=== PATIENT | female | born 2000 | race African-American/Black ===

== ENCOUNTER 2019-10-25 02:48 | Emergency (ER) | payer OTHER ==
[2019-10-25 05:00] LABS: ABSOLUTE BASOPHILS # (AUTO) 0.1 10^3/uL (0.0-0.2); ABSOLUTE EOSINOPHILS # (AUTO) 0.3 10^3/uL (0.0-0.6); ABSOLUTE LYMPHOCYTES (AUTO) 1.9 10^3/uL (0.5-4.7); ABSOLUTE MONOCYTES (AUTO) 0.9 10^3/uL (0.1-1.4); ABSOLUTE NEUT (AUTO) 4.2 10^3/uL (1.7-8.2); BASOPHILS % (AUTO) 0.8 % (0-2); EOSINOPHILS % (AUTO) 3.4 % (0-6); HEMATOCRIT 39.3 % (36.0-47.0); HEMOGLOBIN 13.4 g/dL (12.0-15.5); LYMPHOCYTES % (AUTO) 25.4 % (13-45); MEAN CORPUSCULAR HEMOGLOBIN 30.6 pg (27.0-33.4); MEAN CORPUSCULAR HGB CONC 34.3 g/dL (32.0-36.0); MEAN CORPUSCULAR VOLUME 89 fl (80-97); MONOCYTES % (AUTO) 12.9 % (3-13); PLATELET COUNT 254 10^3/uL (150-450); RED CELL DISTRIBUTION WIDTH 12.2 % (11.5-14.0); SEGMENTED NEUTROPHILS % (AUTO) 57.5 % (42-78); TOTAL CELLS COUNTED % (AUTO) 100 %; WHITE BLOOD COUNT 7.3 10^3/uL (4.0-10.5)
[2019-10-25 05:05] LABS: APPEARANCE,URINE SLIGHTLY-CLOUDY; BILIRUBIN,URINE NEGATIVE (NEGATIVE); COLOR,URINE YELLOW; GLUCOSE, URINE NEGATIVE (NEGATIVE); KETONES,URINE NEGATIVE (NEGATIVE); LEUKOCYTE ESTERASE,URINE NEGATIVE (NEGATIVE); NITRITE,URINE NEGATIVE (NEGATIVE); PROTEIN,URINE NEGATIVE (NEGATIVE); URINE SPECIFIC GRAVITY 1.023; UROBILINOGEN,URINE NEGATIVE mg/dL (<2.0)
[2019-10-25 05:06] LABS: ALKALINE PHOSPHATASE 48 U/L (38-126); ANION GAP 8 (5-19); ASPARTATE AMINO TRANSFERASE 28 U/L (14-36); BILIRUBIN,TOTAL 0.4 mg/dL (0.2-1.3); BLOOD UREA NITROGEN 11 mg/dL (7-20); CALCIUM 9.7 mg/dL (8.4-10.2); CARBON DIOXIDE 27 mmol/L (22-30); CHLORIDE 102 mmol/L (98-107); GLUCOSE 100 mg/dL (75-110); POTASSIUM 4.5 mmol/L (3.6-5.0); TOTAL PROTEIN 8.6 g/dL (6.3-8.2)
[2019-10-25] MEDS ORDERED: PROMETHAZINE HCL 25 MG TABLET PO ONE (05:17)
[2019-10-25] MEDS ORDERED: OXYCODONE-ACETAMINOPHEN 5-325 MG TABLET PO ONE (05:17)
[2019-10-25] MEDS ORDERED: IBUPROFEN 600 MG TABLET PO ONE (05:17)
--- NOTE | 2019-10-25 05:21 | ER Document Report ---
ED GI/ - General Chief Complaint: Abdominal Pain Stated Complaint: LOWER ABDOMINAL PAIN Time Seen by Provider: 10/25/19 05:06 Primary Care Provider: [facility] [Provider Group] - Follow up as needed Notes: Patient is a 19-year-old female that comes to the emergency department for chief complaint of sharp left lower abdominal/pelvic pain that woke her up from sleep just prior to arrival. She reports initial nausea and worse pain, she also reports some light vaginal bleeding. She denies vaginal discharge, flank pain, vomiting, fever, dysuria, concerns for STD. She denies history of ovarian cysts. She states her last menstrual cycle was less than a month ago. She denies any daily medications, surgeries, or past medical history. - Related Data Allergies/Adverse Reactions: No Known Allergies Allergy (Unverified 10/25/19 04:31) Past Medical History - General Information source: Patient - Social History Smoking Status: Never Smoker Frequency of alcohol use: Social Drug Abuse: None Lives with: Family Family History: Reviewed & Not Pertinent Surgical Hx: Negative - Immunizations Immunizations up to date: Yes Hx Diphtheria, Pertussis, Tetanus Vaccination: Yes Review of Systems - Review of Systems Constitutional: No symptoms reported EENT: No symptoms reported Cardiovascular: No symptoms reported Respiratory: No symptoms reported Gastrointestinal: See HPI Genitourinary: See HPI Female Genitourinary: See HPI Musculoskeletal: No symptoms reported Skin: No symptoms reported Hematologic/Lymphatic: No symptoms reported Neurological/Psychological: No symptoms reported Physical Exam - Vital signs Vitals: Temp Pulse Resp BP Pulse Ox 98.5 F 63 16 111/68 97 10/25/19 02:57 10/25/19 02:57 10/25/19 02:57 10/25/19 02:57 10/25/19 02:57 - Notes Notes: GENERAL: Alert, interacts well. No acute distress. HEAD: Normocephalic, atraumatic. EYES: Pupils equal, round, and reactive to light. Extraocular movements intact. ENT: Oral mucosa moist, tongue midline. Oropharynx unremarkable. Airway patent. LUNGS: Clear to auscultation bilaterally, no wheezes, rales, or rhonchi. No respiratory distress. Non-tender chest wall. HEART: Regular rate and rhythm. No murmur ABDOMEN: There is some tenderness in the mid to left lower abdomen/pelvic area. There is no guarding. Remaining abdomen is soft and benign. No rigidity or distention. Bowel sounds present. EXTREMITIES: Moves all 4 extremities spontaneously. No edema, normal radial and dorsalis pedis pulses bilaterally. No cyanosis. BACK: no cervical, thoracic, lumbar midline tenderness. No saddle anesthesia, normal distal neurovascular exam. Moves all extremities in full range of motion. NEUROLOGICAL: Alert and oriented x3. Normal speech. Cranial nerves II through XII grossly intact. Strength 5/5 in all extremities. PSYCH: Normal affect, normal mood. SKIN: Warm, dry, normal turgor. No rashes or lesions noted. Course - Re-evaluation Re-evalutation: CBC, chemistry unremarkable, urinalysis unremarkable with only a little bit of blood which I suspect is secondary to vaginal bleeding. Patient is barely bleeding at all now, she is quite comfortable now. Patient states initially she was in a lot of pain, had nausea, however she has significantly improved now. Transvaginal ultrasound with no concerning findings, trace free fluid. On reevaluation patient is still not been medicated but her pain and symptoms have almost completely resolved. Discussed pelvic exam but this was declined by patient. Overall her presentation does suggest ruptured ovarian cyst with no concerning findings otherwise. She might just have a menstrual cycle pain, I did discuss irregular menstrual cycles, routine [facility] follow-up, and return precautions. Patient states appreciation and agreement. Smiling, well- appearing, no complaints at time of discharge. - Vital Signs Vital signs: Temp Pulse Resp BP Pulse Ox 98.2 F 63 16 136/67 H 96 10/25/19 06:35 10/25/19 06:35 10/25/19 06:35 10/25/19 06:35 10/25/19 06:35 - Laboratory Result Diagrams: 10/25/19 04:41 10/25/19 04:41 Laboratory results interpreted by me: 10/25/19 10/25/19 04:41 04:41 Sodium 136.8 L Total Protein 8.6 H Urine Blood LARGE H Discharge - Discharge Clinical Impression: Lower abdominal pain Condition: Stable Disposition: HOME, SELF-CARE Additional Instructions: Your work-up does not show any concerning findings. Your overall evaluation is reassuring. I suspect your pain was from an ovarian cyst that popped, however this is not definite. I suspect your symptoms will simply resolve with time. Follow-up with [facility] routinely. Return if you worsen including returned or severe/worsening pain, vomiting, fever, or any other concerning symptoms. Forms: Return to Work Referrals: [facility] [Provider Group] - Follow up as needed
--- NOTE | 2019-10-25 06:22 | RADIOLOGY REPORT (SQ) ---
EXAM: US Pelvis Transvaginal CLINICAL DATA: 19-year-old female with sharp left pelvic pain, nausea and bleeding, LMP: 09/30/2019 TECHNICAL DATA: Ultrasound imaging of the pelvis was performed endovaginally on 10/25/2019 at 5:54 AM. COMPARISONS: None FINDINGS: The uterus is normal in size, shape and echogenicity and measures 7.8 x 5.0 x 3.4 cm. The endometrial complex is thickened and measures 1.9 cm in diameter. There is no endometrial fluid. The cervix measures approximately 2.6 cm in length. There is a small amount of fluid near the cervix. The right ovary measures 3.7 x 2.1 x 2.3 cm. The right ovary contains normal follicles. Doppler imaging demonstrates normal pulsed and color Doppler flow. The left ovary measures 2.4 x 1.1 x 1.1 cm. The left ovary contains normal follicles. Doppler imaging demonstrates normal pulsed and color Doppler flow. There is no free fluid in the pelvis. IMPRESSION: 1. Mild thickening of the endometrial echo complex. This could be related to the stage of the patient's menstrual cycle. If clinical symptoms persist, consider follow-up imaging during a different phase of the patient's menstrual cycle. 2. Normal sonographic evaluation of the ovaries. 3. Trace amount of fluid in the endometrial canal adjacent to the cervix. 4. No adnexal mass lesions are identified.
[2019-10-25 06:36] VITALS: BP 136/67
== END 2019-10-25 06:36 | disposition home or self-care (01) ==
LOC: ER 02:48
DX: R10.30 Lower abdominal pain, unspecified (principal); N93.8 Other specified abnormal uterine and vaginal bleeding
CPT/HCPCS: 36415; 76830; 80053; 81001; 81025; 83690; 85025; 93976; 99284